=== PATIENT | female | born 1970 ===

== ENCOUNTER 2024-11-18 18:26 | Emergency (ER) | payer OTHER ==
[2024-11-18] MEDS: Diphtheria,Pertussis(Acell),Tetanus Vaccine 0.5 ML Syringe IM ONE (19:26)
[2024-11-18] MEDS: Acetaminophen 500 MG Tab PO ONE (20:35)
== END 2024-11-18 20:51 | disposition home or self-care (01) ==
LOC: DL.ED 18:26
DX: S60.212A Contusion of left wrist, initial encounter (principal); S40.012A Contusion of left shoulder, initial encounter; W19.XXXA Unspecified fall, initial encounter; Z23 Encounter for immunization
CPT/HCPCS: 73030; 73110; 90471; 90715; 99283; A9270